=== PATIENT | female | born 1945 | race Caucasian/White ===

== ENCOUNTER 2020-11-06 14:27 | Emergency (ER) | payer MEDICARE, OTHER ==
[~2020-11-06 14:27] MED LIST: ALLEGRA ALLERG180 MG PO; AMIODARONE HCL200 MG PO; ASPIRIN CHEWABL81 MG PO; ATIVAN0.5 MG PO; ELIQUIS 5 MG TAB5 MG PO; IBUPROFEN800 MG PO; INDERAL TAB 2020 MG PO; MACROBID 100 M100 MG PO; METOPROLOL SUCC50 MG PO; NITROSTAT0.4 MG SL; PROTONIX40 MG PO; SERTRALINE HCL50 MG PO; VITAMIN B-121000 MCG PO; VITAMIN D31000 UNI1 PO; ZANTAC150 MG PO
[2020-11-06 15:39] LABS: HEMOGLOBIN 12.3 gm/dl (12.3-15.3); RED BLOOD COUNT 4.17 M/UL (4.00-5.10)
[2020-11-06 16:15] LABS: BUN/CREATININE RATIO 19 (0-10)
== END 2020-11-06 16:30 | disposition home or self-care (01) ==
LOC: ER1 14:27
PROVIDERS: Physician Assistant
DX: I49.8 Other specified cardiac arrhythmias (principal); M54.5 Low back pain; N89.8 Other specified noninflammatory disorders of vagina; I48.91 Unspecified atrial fibrillation; I10 Essential (primary) hypertension; E78.5 Hyperlipidemia, unspecified; Z90.710 Acquired absence of both cervix and uterus; Z88.2 Allergy status to sulfonamides
CPT/HCPCS: 71045; 80053; 81001; 82550; 82553; 83874; 84484; 85025; 93005; 99285

== ENCOUNTER 2020-12-22 14:48 | Emergency (ER) | payer MEDICARE, OTHER ==
[2020-12-22 15:57] LABS: HEMOGLOBIN 11.9 gm/dl (12.3-15.3); RED BLOOD COUNT 4.06 M/UL (4.00-5.10); WHITE BLOOD COUNT 6.8 K/UL (4.5-11.0)
[2020-12-22 16:23] LABS: BUN/CREATININE RATIO 16 (0-10)
[2020-12-22] MEDS ORDERED: OMNICEF 300 MG300 MG PO (16:34)
== END 2020-12-22 16:46 | disposition home or self-care (01) ==
LOC: ER1 14:48
PROVIDERS: Emergency Medicine
DX: F41.9 Anxiety disorder, unspecified (principal); N39.0 Urinary tract infection, site not specified; I10 Essential (primary) hypertension
CPT/HCPCS: 80048; 81001; 82550; 82553; 83874; 84484; 85025; 87086; 93005; 99283